=== PATIENT | female | born 1965 | race Caucasian/White ===

== ENCOUNTER 2016-10-24 19:22 | Emergency (ER) | payer MEDICAID, OTHER ==
[2016-10-24 19:22] VITALS: BMI 27.4
[2016-10-24 19:41] VITALS: BP 130/80; PULSE 92; RESP 14; TEMP 97.6; O2SAT 99
[2016-10-24 20:16] LABS: BASO % 0.3 % (0.0-2.0); EOS # 0.1 K/uL (0.0-0.7); EOS % 1.3 % (0.0-4.0); HEMATOCRIT 39.2 % (34.0-47.0); LYMPH # 2.3 K/uL (1.0-4.3); LYMPH % 20.1 % (20.0-40.0); MEAN CELL VOLUME 87.2 fL (81.0-99.0); MEAN CORPUSCULAR HGB CONC 33.3 g/dL (33.0-37.0); MEAN PLATELET VOLUME 8.8 fL (7.2-11.7); MONO # 0.6 K/uL (0.0-0.8); MONO % 5.6 % (0.0-10.0); WHITE BLOOD COUNT 11.6 K/uL (4.8-10.8)
--- NOTE | 2016-10-24 20:18 | C.PDOC ---
History Of Present Illness 50 year old female presents to the ED with complaints of bleeding to her right lower gum starting today. Patient states she took Midol for the first time yesterday and today for her period cramps and notes the bleeding started after she ate some pizza. She also notes having a mild itch that resolved and is concerned she might have had an allergic reaction. Denies any redness, rash, use of blood thinners, difficulty breathing, or any other complaints at this time. Time Seen by Provider: 10/24/16 19:40 Chief Complaint (Nursing): Allergic Reaction History Per: Patient History/Exam Limitations: no limitations Onset/Duration Of Symptoms: Hrs Current Symptoms Are (Timing): Better (As of now, no itching, rash, or swelling at this time) Possible Cause: Medication Associated Symptoms: denies: Skin Rash, Swelling, Trouble Swallowing, Redness, Chest Pain Home/EMS Treatment: None Severity: Mild Recent travel outside of the [place]: No Past Medical History Reviewed: Historical Data, Nursing Documentation, Vital Signs Vital Signs: Last Vital Signs Temp 97.6 F 10/24/16 19:35 Pulse 92 H 10/24/16 19:35 Resp 14 10/24/16 19:35 BP 130/80 10/24/16 19:35 Pulse Ox 99 10/25/16 00:22 - Medical History PMH: Hypercholesterolemia Surgical History: Cholecystectomy Family History: States: Unknown Family Hx - Social History Hx Tobacco Use: No Hx Alcohol Use: No Hx Substance Use: No - Immunization History Hx Tetanus Toxoid Vaccination: No Hx Influenza Vaccination: No Hx Pneumococcal Vaccination: No Review Of Systems Except As Marked, All Systems Reviewed And Found Negative. Constitutional: Negative for: Fever, Chills ENT: Positive for: Other (Bleeding to the right lower gums). Negative for: Mouth Swelling, Throat Swelling Cardiovascular: Negative for: Chest Pain Respiratory: Negative for: Shortness of Breath Gastrointestinal: Negative for: Nausea, Vomiting, Abdominal Pain Skin: Negative for: Rash Neurological: Negative for: Weakness, Numbness Physical Exam - Physical Exam Appears: Non-toxic, No Acute Distress Skin: Normal Color, Warm, Dry, No Rash Head: Atraumatic, Normacephalic Eye(s): bilateral: Normal Inspection Oral Mucosa: Moist Tongue: Normal Appearing, No Swelling Lips: Normal Appearing, No Swelling Teeth: Normal Dentition Gingiva: Swelling (+Mild swelling of the right lower gums), Other (+Dried blood around the 1st right lower molar) Throat: Normal, No Erythema, No Exudate Neck: Supple Chest: Symmetrical, No Deformity Cardiovascular: Rhythm Regular, No Murmur Respiratory: Normal Breath Sounds, No Accessory Muscle Use, No Rales, No Rhonchi , No Stridor, No Wheezing Extremity: Normal ROM, No Swelling Neurological/Psych: Oriented x3, Normal Speech, Normal Cognition, Normal Motor Gait: Steady ED Course And Treatment - Laboratory Results Result Diagrams: 10/24/16 20:02 10/24/16 20:02 O2 Sat by Pulse Oximetry: 99 (Room air) Pulse Ox Interpretation: Normal Medical Decision Making Medical Decision Making: Impression/Differential: 50 y/o female who has sudden onset of bleeding gums and transient pruritus. Patient does not take any anti-coagulants or any medications that may cause bleeding. Possibilities are thrombocytopenia, allergic reaction, gingivitis, trauma to the gums from sharp food/object. Plan: -Blood work On re-exam, the patient bleeding has resolved and patient has no symptoms of rash or anaphylaxis will discharge home with Rx for benadryl. Lungs remain CTA, heart is RRR, airways are patent. Follow up with the medical doctor within 1-2 days without fail. Return if worsened. Disposition - Disposition Referrals: [facility] [Outside] Chao Smyth MD [Non-Staff] - Disposition: HOME/ ROUTINE Disposition Time: 20:44 Condition: GOOD Additional Instructions: Follow up with dentist within 1-2 days without fail. Return if worsened. Prescriptions: DiphenhydrAMINE [Benadryl] 25 mg PO Q4H PRN #30 cap PRN Reason: Itching / Pruritus Chlorhexidine 0.12% [Peridex] 15 ml MM BID #2 bottle Instructions: Gingivitis (ED) - POA Present On Arrival: None - Clinical Impression Clinical Impression: Gingival bleeding, Gingivitis, Drug-induced pruritus - PA / MANAGER PROJECT MANAGEMENT / Resident Statement MD/DO has reviewed & agrees with the documentation as recorded. - Scribe Statement The provider has reviewed the documentation as recorded by the Scribe Jimenez Chin. All medical record entries made by the Scribe were at my direction and personally dictated by me. I have reviewed the chart and agree that the record accurately reflects my personal performance of the history, physical exam, medical decision making, and the department course for this patient. I have also personally directed, reviewed, and agree with the discharge instructions and disposition.
[2016-10-24 20:21] LABS: CHLORIDE 100 mmol/L (98-107)
[2016-10-24 20:22] LABS: POTASSIUM 3.6 mmol/L (3.6-5.2); SODIUM 138 mmol/L (132-148)
[2016-10-24 20:24] LABS: GFR AFRICAN-AMERICAN > 60
[2016-10-24 20:25] LABS: BLOOD UREA NITROGEN 13 mg/dL (7-17); CALCIUM 9.1 mg/dl (8.6-10.4); CARBON DIOXIDE 23 mmol/L (22-30); GLUCOSE,RANDOM 126 mg/dL (65-105)
== END 2016-10-24 21:03 | disposition home or self-care (01) ==
LOC: C.ER 19:22
DX: K05.10 Chronic gingivitis, plaque induced (principal); L29.9 Pruritus, unspecified; T39.315A Adverse effect of propionic acid derivatives, initial encounter; Y92.009 Unspecified place in unspecified non-institutional (private) residence as the place of occurrence of the external cause

== ENCOUNTER 2017-02-02 13:30 | Emergency (ER) | payer OTHER ==
[2017-02-02 13:30] VITALS: BMI 27.4
--- NOTE | 2017-02-02 14:48 | C.PDOC ---
History Of Present Illness Patient is a 51 y/o female presents to the emergency department for evaluation of sharp episode of chest pain that occured 5 days ago. Patient reports that she was sitting at home when she got the sharp pain that spontaneously remitted. She has not had a reocurrence of the pain but reports that she is concerned so she came to be evaluated. She reports a hx of palpitations, with negative cardiac work up including negative 24 hour holter monitoring result. . Otherwise, denies any URI symptoms, fever, chills, heat/cold intolerance, shortness of breath, palpitations, headache, dizziness, or chest pain at this time. Time Seen by Provider: 02/02/17 14:27 Chief Complaint (Nursing): Palpitations History Per: Patient History/Exam Limitations: no limitations Onset/Duration Of Symptoms: Days (5) Current Symptoms Are (Timing): Gone Severity: None Pain Scale Rating Of: 0 Associated Symptoms: denies: Nausea, Dyspnea, Diaphoresis, Syncope Modifying Factors: None Exacerbating Factors: None Alleviating Factors: None Additional History Per: Patient Past Medical History Reviewed: Historical Data, Nursing Documentation, Vital Signs Vital Signs: Last Vital Signs Temp 98.0 F 02/02/17 14:21 Pulse 73 02/02/17 16:17 Resp 18 02/02/17 16:17 BP 136/82 02/02/17 16:17 Pulse Ox 99 02/02/17 16:17 - Medical History PMH: Hypercholesterolemia Surgical History: Cholecystectomy Family History: States: Unknown Family Hx - Social History Hx Tobacco Use: No Hx Alcohol Use: No Hx Substance Use: No - Immunization History Hx Tetanus Toxoid Vaccination: No Hx Influenza Vaccination: No Hx Pneumococcal Vaccination: No Review Of Systems Except As Marked, All Systems Reviewed And Found Negative. Constitutional: Negative for: Fever, Chills, Weight loss Cardiovascular: Positive for: Chest Pain (sharp that was 5 days ago and now resolved). Negative for: Palpitations, Edema, Light Headedness Respiratory: Negative for: Cough, Shortness of Breath Gastrointestinal: Negative for: Nausea, Vomiting, Abdominal Pain, Diarrhea, Constipation Genitourinary: Negative for: Dysuria Skin: Negative for: Rash Neurological: Negative for: Weakness, Numbness, Headache, Dizziness Physical Exam - Physical Exam Appears: Well, Non-toxic, No Acute Distress Skin: Normal Color, Warm, Dry Head: Atraumatic, Normacephalic Eye(s): bilateral: Normal Inspection, PERRL, EOMI Neck: Normal ROM, Supple, Other (no thyromegaly) Chest: Symmetrical Cardiovascular: Rhythm Regular, No Edema, No Murmur Respiratory: Normal Breath Sounds, No Accessory Muscle Use, No Rales, No Rhonchi , No Wheezing Gastrointestinal/Abdominal: Soft, No Tenderness, No Mass, No Distention Extremity: Normal ROM, No Pedal Edema, No Deformity, No Swelling Neurological/Psych: Oriented x3, Normal Speech, Normal Cognition Gait: Steady ED Course And Treatment - Laboratory Results Result Diagrams: 02/02/17 14:52 02/02/17 14:52 ECG: Interpreted By Me, Viewed By Me ECG Rhythm: Sinus Rhythm ECG Interpretation: No Changes From Prior Interpretation Of ECG: Normal intervals. Isolated T wave inversion in lead III. Unchanged from prior ECG on 10/21/13. Rate From EC (bpm) O2 Sat by Pulse Oximetry: 98 (on RA) Pulse Ox Interpretation: Normal Medical Decision Making Medical Decision Making: Blood work, urinalysis, EKG, CXR ordered and reviewed. EKG is unchanged from prior. Trop x 1 negative. Thyroids WNL. UA shows hematuria but patient currently on menses. Cxray negative. Patient had isolated episode of sharp chest pain 5 days ago that has no reoccurred. Patient instructed to follow-up with PMD Disposition - Disposition Disposition: HOME/ ROUTINE Disposition Time: 15:50 Condition: GOOD Additional Instructions: Follow up with PMD within 2 days. Return to ED if condition worsens. Instructions: Palpitations (ED), Acute Hematuria (ED) Forms: Work Excuse Print Language: ITALIAN - Clinical Impression Clinical Impression: Hematuria, Palpitations - Scribe Statement The provider has reviewed the documentation as recorded by the Arely Contreras All medical record entries made by the Arely were at my direction and personally dictated by me. I have reviewed the chart and agree that the record accurately reflects my personal performance of the history, physical exam, medical decision making, and the department course for this patient. I have also personally directed, reviewed, and agree with the discharge instructions and disposition.
[2017-02-02 14:49] LABS: HCG,QUALITATIVE URINE NEGATIVE (NEGATIVE)
[2017-02-02 14:52] VITALS: RESP 18; TEMP 98
[2017-02-02 14:56] LABS: BASO # 0.1 K/uL (0.0-0.2); BASO % 0.7 % (0.0-2.0); EOS # 0.1 K/uL (0.0-0.7); EOS % 0.9 % (0.0-4.0); HEMOGLOBIN 13.3 g/dL (11.0-16.0); LYMPH # 1.5 K/uL (1.0-4.3); LYMPH % 13.6 % (20.0-40.0); MEAN CORPUSCULAR HEMOGLOBIN 28.8 pg (27.0-31.0); MEAN CORPUSCULAR HGB CONC 32.3 g/dL (33.0-37.0); MEAN PLATELET VOLUME 8.8 fL (7.2-11.7); MONO # 0.8 K/uL (0.0-0.8); MONO % 6.7 % (0.0-10.0); NEUT # 8.8 K/uL (1.8-7.0); NEUT % 78.1 % (50.0-75.0); RBC 4.6 Mil/uL (3.80-5.20); RED CELL DISTRIBUTION WIDTH 13.1 % (11.5-14.5); WHITE BLOOD COUNT 11.3 K/uL (4.8-10.8)
[2017-02-02 14:56] LABS: SQUAMOUS EPITHIAL 3 /hpf (0-5); URINE BACTERIA RARE (<OCC); URINE BILIRUBIN NEGATIVE (NEGATIVE); URINE BLOOD 2+ (NEGATIVE); URINE CLARITY Clear (Clear); URINE COLOR Red (YELLOW); URINE GLUCOSE (UA) NORMAL (Normal); URINE LEUKOCYTE ESTERASE NEG Leu/uL (Negative); URINE NITRATE NEGATIVE (NEGATIVE); URINE PROTEIN 2+ mg/dL (NEGATIVE); URINE UROBILINOGEN NORMAL mg/dL (0.2-1.0)
[2017-02-02 15:00] LABS: MEAN CELL VOLUME 89.2 fL (81.0-99.0)
[2017-02-02 15:07] LABS: ALBUMIN 4.3 g/dL (3.5-5.0)
[2017-02-02 15:10] LABS: ALB/GLOB RATIO 1.1 (1.0-2.1); AST/SGOT 35 U/L (14-36); GFR AFRICAN-AMERICAN > 60; GFR NON-AFRICAN AMERICAN > 60
[2017-02-02 15:11] LABS: ALT/SGPT 19 U/L (9-52); BLOOD UREA NITROGEN 13 mg/dL (7-17); CALCIUM 9.3 mg/dl (8.6-10.4); MAGNESIUM 1.7 mg/dL (1.6-2.3)
--- NOTE | 2017-02-02 15:50 | RAD ---
HISTORY: palpitations COMPARISON: 07/03/2015 FINDINGS: LUNGS: No active pulmonary disease. PLEURA: No significant pleural effusion identified, no pneumothorax apparent. CARDIOVASCULAR: Normal. OSSEOUS STRUCTURES: No significant abnormalities. VISUALIZED UPPER ABDOMEN: Normal. OTHER FINDINGS: None. IMPRESSION: No active disease.
[2017-02-02 16:17] VITALS: BP 136/82; PULSE 73
[2017-02-02 16:28] VITALS: O2SAT 98
--- NOTE | 2017-02-03 12:58 | CARD ---
APPROVED REPORT EKG Measurement Heart [id number] CO [id number] <Conclusion> Normal sinus rhythm Nonspecific ST and T wave abnormality Abnormal ECG
== END 2017-02-02 16:17 | disposition home or self-care (01) ==
LOC: C.ER 13:30
DX: R00.2 Palpitations (principal); R31.9 Hematuria, unspecified

== ENCOUNTER 2017-05-02 11:31 | Emergency (ER) | payer MEDICAID ==
[2017-05-02 11:32] VITALS: BMI 27.4
--- NOTE | 2017-05-02 12:28 | C.PDOC ---
History Of Present Illness 51 yr old F c/o spinning like sensation on and off 2 wks. Pt has a hx of vertigo. No n/v, fever, feeling sick. Time Seen by Provider: 05/02/17 12:05 Chief Complaint (Nursing): Dizziness/Lightheaded History Per: Patient History/Exam Limitations: no limitations Onset/Duration Of Symptoms: Waxing/Waning Current Symptoms Are (Timing): Better Past Medical History Reviewed: Historical Data, Nursing Documentation, Vital Signs Vital Signs: Last Vital Signs Temp 98.1 F 05/02/17 13:11 Pulse 84 05/02/17 13:11 Resp 20 05/02/17 13:11 BP 134/81 05/02/17 13:11 Pulse Ox 99 05/02/17 18:19 - Medical History PMH: Hypercholesterolemia Surgical History: Cholecystectomy Family History: States: Unknown Family Hx - Social History Hx Tobacco Use: No Hx Alcohol Use: No Hx Substance Use: No - Immunization History Hx Tetanus Toxoid Vaccination: No Hx Influenza Vaccination: No Hx Pneumococcal Vaccination: No Review Of Systems Constitutional: Negative for: Fever Cardiovascular: Negative for: Chest Pain Respiratory: Negative for: Cough Gastrointestinal: Negative for: Nausea, Vomiting, Abdominal Pain Genitourinary: Negative for: Dysuria Musculoskeletal: Negative for: Neck Pain Neurological: Positive for: Dizziness. Negative for: Weakness, Numbness Physical Exam - Physical Exam Appears: Well, Non-toxic, No Acute Distress Skin: Normal Color, Warm, Dry Head: Atraumatic, Normacephalic Eye(s): bilateral: Normal Inspection Ear(s): Bilateral: Normal Nose: Normal Oral Mucosa: Moist Tongue: Normal Appearing Lips: Normal Appearing Throat: Normal Neck: Normal, Normal ROM Chest: Symmetrical Cardiovascular: Rhythm Regular Respiratory: Normal Breath Sounds Gastrointestinal/Abdominal: Normal Exam, Bowel Sounds Back: Normal Inspection Extremity: Bilateral: Atraumatic Neurological/Psych: Oriented x3, Normal Speech, Normal Motor, Normal Sensation ED Course And Treatment O2 Sat by Pulse Oximetry: 99 Pulse Ox Interpretation: Normal Reassessment Condition: Improved (symptoms resolved p meclizine) Medical Decision Making Medical Decision Making: The patient was administered Antivert. Disposition Counseled Patient/Family Regarding: Studies Performed, Diagnosis, Need For Followup, Rx Given - Disposition Referrals: Curry Camacho MD [Staff Provider] - [facility] [Outside] [facility] [Outside] Disposition: HOME/ ROUTINE Disposition Time: 13:04 Condition: STABLE Additional Instructions: FOLLOW UP WITH PMD AND ENT DR. CAMACHO FOR RE-EVALUATION. IF SYMPTOMS GET WORSE OR ANY NEW CONCERNING SYMPTOMS DEVELOP RETURN TO ED. Prescriptions: Meclizine [Meclizine*] 1 tab PO Q8H PRN #15 tab PRN Reason: Dizziness Instructions: Vertigo (ED) Forms: [facility] (Russian), General Discharge Instructions - Clinical Impression Clinical Impression: Vertigo
[2017-05-02 13:12] VITALS: BP 134/81; PULSE 84; RESP 20; TEMP 98.1
[2017-05-02 18:19] VITALS: O2SAT 99
== END 2017-05-02 13:16 | disposition home or self-care (01) ==
LOC: C.ER 11:31
DX: R42 Dizziness and giddiness (principal)